=== PATIENT | male | born 1965 | race Caucasian/White ===

== ENCOUNTER 2020-02-03 11:21 | Emergency (ER) | payer MEDICARE, MEDICAID, SELFPAY ==
[2020-02-03 11:48] VITALS: BP 130/78; PULSE 81; RESP 16; TEMP 36.8; BMI 45.8
--- NOTE | 2020-02-03 13:59 | XRR_ITS ---
PROCEDURE INFORMATION: Exam: XR Chest, 1 View Exam date and time: 02/03/2020 2:00 PM Age: 55 years old Clinical indication: Chest pain; Type not specified TECHNIQUE: Imaging protocol: XR of the chest Views: 1 view. COMPARISON: No relevant prior studies available. FINDINGS: Lungs: Unremarkable. No consolidation. Pleural space: Unremarkable. No pleural effusion. No pneumothorax. Heart/Mediastinum: Unremarkable. No cardiomegaly. Bones/joints: Unremarkable. XR/XR chest 1V portable [id number] IMPRESSION: No acute findings.
[2020-02-03 14:48] LABS: Basophils % 0.2 %; Eosinophils # 0.1 10^3/uL (0.0-0.8); Eosinophils % 1.1 %; Hematocrit 46.6 % (42.0-52.0); Hemoglobin 14.7 g/dL (11.7-16.6); Lymphocytes # 1.9 10^3/uL (0.8-4.8); Lymphocytes % 21.5 %; Mean Corpuscular HGB Conc 31.5 g/dL (30.0-36.0); Mean Corpuscular Hemoglobin 32.2 pg (28.0-34.0); Mean Platelet Volume 10.8 fL (7.4-10.4); Monocytes # 0.5 10^3/uL (0.2-0.9); Neutrophils # 6.4 10^3/uL (1.8-7.7); Neutrophils % 71.9 %; Nucleated Red Blood Cells % 0 %; Platelet Count 237 10^3/cmm (130-400); Red Blood Count 4.57 10^6/uL (4.1-5.3); Red Cell Distribution Width 13.1 % (12.1-15.1); White Blood Count 8.9 10^3/uL (4.0-10.0)
[2020-02-03 15:34] LABS: Alanine Aminotransferase 22 U/L (0-41); Albumin Level 4.1 g/dL (3.5-5.2); Alkaline Phosphatase 78 IU/L (40-130); Anion Gap 14.1 (5-19); Aspartate Amino Transferase 17 U/L (0-40); Blood Urea Nitrogen 7 mg/dL (6-20); Calcium 9.2 mg/dL (8.5-10.5); Carbon Dioxide 28 mmol/L (22-29); Chloride 101 mmol/L (98-107); Globulin 3.3 g/dL (1.3-4.6); Glomerular Filtration Rate 87.6 mL/min (90-130); Glucose 93 mg/dL (65-115); Osmolality Calculated 284 mOsm/kg (285-295); Potassium 4.1 mmol/L (3.5-5.1); Sodium 139 mmol/L (136-145); Total Bilirubin 0.3 mg/dL (0.15-1.2); Total Protein 7.4 g/dL (6.6-8.7)
[2020-02-03 15:35] LABS: Troponin(5th) Baseline 6 ng/L (0-15)
--- NOTE | 2020-02-03 15:59 | ECG_ITS ---
[facility] ED Test Date: 2020-02-03 Pat Name: Jaxson Beckham Department: Room: Gender: Male Radiologist Physician: : 1965 Requested By: Ruth Riggins Order Number: [id number] Sp MD: Dang Alatorre M.D. Measurements Intervals [place] Rate: 70 P: 66 AK: 158 QRS: 30 QRSD: 100 T: 70 QT: 414 QTc: 447 Interpretive Statements SINUS RHYTHM LOW QRS VOLTAGE IN PRECORDIAL LEADS [QRS DEFLECTION < 1.0 mV IN CHEST LEADS] No previous ECG available for comparison Electronically Signed On 02-03-2020 20:54:17 CDT by Dang Alatorre M.D. [id number]
--- NOTE | 2020-02-03 16:50 | W.ED.WEAKNES ---
HPI - Weakness General: Chief complaint: Weakness Stated complaint: lightheaded/sent from [facility] Time Seen by Provider: 02/03/20 15:45 Source: patient and family Mode of arrival: ambulatory Limitations: no limitations History of Present Illness: HPI Narrative: Jaxson is a very nice 55-year-old male who comes in complaining of weakness, fatigue and arm and leg tingling as well as tingling to the back of his head. All of the symptoms have resolved at this time and are intermittent in nature. His weakness is ongoing but the patient states that he was sent here by his doctor to be evaluated. The patient states all of the symptoms have been going on for at least 4 months. They are intermittent and not disabling but becoming more frequent and he felt as though he should get checked out. Associated symptoms: Denies chest pain, chills, confusion, melena, diaphoresis, dysuria, easy bruising, fever(s), headache(s), nausea, syncope or vomiting Review of Systems Const: Reports: fatigue and malaise; Denies: fever(s), chills, body aches or diaphoresis Eyes: Denies: change in vision, blurry vision, blind spots, photophobia, eye discharge or eye redness ENMT: Denies: throat pain, odynophagia, hoarseness, swelling of lips/tongue, oral sores, ear or mastoid pain, ear discharge, change in hearing or nasal discharge Card: Denies: chest pain, palpitations, irregular heart rhythm, edema, lightheadedness, syncope, pre-syncope, dyspnea on exertion or orthopnea Resp: Denies: dyspnea, productive cough, non-productive cough, wheezing, hemoptysis or chest congestion GI: Denies: abdominal pain, nausea, vomiting, hematemesis, coffee ground emesis, heartburn, diarrhea, constipation, GI cramping, hematochezia or melena : Denies: flank pain, dysuria, urinary frequency, urinary urgency or hematuria Musc: Denies: neck pain, back pain, extremity pain, extremity swelling, joint pain, joint swelling, joint redness, joint warmth or joint stiffness Skin/Breast: Denies: rash, pruritus, erythema, skin tenderness or jaundice Neuro: Denies: headache(s), numbness in extremities, weakness in extremities, sensory changes, lack of coordination, difficulty walking, dizziness, vertigo, confusion, Slurred speech present or seizure-like activity Alvino/Lymph: Denies: easy bruising, easy bleeding, petechiae, purpura or enlarged lymph nodes All/Imm: Denies: urticaria, throat swelling, tongue swelling, facial swelling or acute wheezing PFSH ED PFSH: Medical History Cervical paraspinal muscle spasm PATI (generalized anxiety disorder) GERD (gastroesophageal reflux disease) Major depression Mixed hyperlipidemia Near syncope Surgical History No pertinent past surgical history Family History Father CAD (coronary artery disease) Brother CAD (coronary artery disease) Social History Smoking and tobacco status: current every day smoker cigarettes Packs smoked per day: 1 Quit status (tobacco): not considering quitting Second hand smoke exposure: No Alcohol intake: never Desire information about alcohol rehabilitation?: No Desire information about substance/drug rehabilitation?: No History of recent travel: No Current gender identity: Male Physical Exam Const: COMMON NORMALS: no acute distress, patient oriented x3, no limitations, healthy appearing and well nourished GENERAL APPEARANCE: cooperative, well kempt and well developed HENMT: COMMON NORMALS: normocephalic, atraumatic, external ears normal, EAC's normal and Normal external nose present HEAD & SCALP: normal to inspection, normocephalic and atraumatic FACE & SINUS: normal facial exam and face symmetric NOSE: Normal external nose present and Normal nares present EXTERNAL EAR: Yes external ears normal EXTERNAL AUDITORY CANAL: EAC's normal MOUTH: Normal oral and palatal mucosa present, lip normal and tongue normal Eye: COMMON NORMALS: Equal, round and reactive pupils present and conjunctivae normal GENERAL EYE: appearance normal, both eyes and all related structures ALIGNMENT: Yes alignment normal PERIORBITAL: periorbital findings normal EYELID: eyelids normal CONJUNCTIVA: Yes conjunctivae normal SCLERA: sclerae normal PUPIL: Yes Equal, round and reactive pupils present Neck/C-Spine: COMMON NORMALS: full ROM, no lymphadenopathy, supple, no meningeal signs and no JVD GENERAL: Yes normal visual inspection and Yes trachea midline Chest: COMMONS NORMALS: normal inspection of the chest and normal palpation of entire chest wall Resp: COMMON NORMALS: normal respiratory effort, No retractions and No use of accessory muscles EFFORT & INSPECTION: Yes able to speak in complete sentences and Yes symmetric chest movement AUSCULTATION: no crackles, no rales, no rhonchi and no wheezes Cardio: COMMON NORMALS: no JVD, regular rate, regular rhythm, S1 normal heart sound present and S2 normal heart sound present RATE: regular rate RHYTHM: regular rhythm HEART SOUNDS: S1 normal heart sound present, S2 normal heart sound present, no click, no gallops, no murmurs, no rubs and abnormal split S2 GI: COMMON NORMALS: Soft to palpation and No hepatosplenomegaly present PALPATION: Yes Soft to palpation, No Tenderness to palpation present (GI), No Guarding due to palpation present (GI), No Rigid due to palpation, Yes No hepatosplenomegaly present, No Hernia present, No Palpable mass present and No Pulsatile mass present : COMMON NORMALS: Yes no CVA tenderness BLADDER/KIDNEY EXAM: Yes no CVA tenderness Back/Pelvis: COMMON NORMALS: no CVA tenderness, thoracic and lumbar spine normal to inspection, no thoracic nor lumbar tenderness and thoraco-lumbar ROM normal Extremity: COMMON NORMALS: normal to inspection, full ROM, capillary refill normal, no joint enlargement, no clubbing, cyanosis or edema and no calf tenderness Neuro: COMMON NORMALS: patient oriented x3, CN's II-XII intact bilaterally, moves all extremities, no focal motor deficits and no sensory deficits noted MENINGEAL SIGNS: Yes no meningeal signs SPEECH: speech normal Psych: COMMON NORMALS: mental status grossly normal, Normal thought process present, cooperative, normal affect, speech normal and activity/motor behavior normal APPEARANCE: Yes well kempt SPEECH: Yes normal speech THOUGHT PROCESS: Normal thought process present Skin: COMMON NORMALS: no rashes or lesions noted, turgor normal, no jaundice, no petechiae and no mottling GENERAL SKIN EXAM: no rashes or lesions noted and turgor normal Course Vital Signs: Vital signs: Vital Signs Temperature 98.2 F 02/03/20 11:48 Pulse Rate 78 02/03/20 19:01 Respiratory Rate 17 02/03/20 19:01 Blood Pressure 149/71 02/03/20 19:01 Pulse Oximetry 96 02/03/20 19:01 MDM - Weakness MDM Narrative: Medical decision making narrative: After thorough investigation I cannot determine a cause for the patient's intermittent paresthesias as well as chronic fatigue. He admits that the symptoms are not present here currently other than just feeling tired. I see no acute life-threatening infectious, metabolic, electrolyte or cardiac abnormality. The patient would like a referral to a new primary care physician so I will have case management try to set him up with a new primary care physician. Patient agrees to return here should his symptoms change or worsen but currently he is feeling better and would like to be discharged. Lab Data: Attestation: I reviewed the patient's lab results. Labs: Lab Results 02/03/20 02/03/20 02/03/20 Range/Units 14:25 14:25 14:25 WBC 8.9 (4.0-10.0) 10^3/ uL RBC 4.57 (4.1-5.3) 10^6/u L Hgb 14.7 (11.7-16.6) g/dL Hct 46.6 (42.0-52.0) % MCV 102.0 H (80-94) fL MCH 32.2 (28.0-34.0) pg MCHC 31.5 (30.0-36.0) g/dL RDW 13.1 (12.1-15.1) % Plt Count 237 (130-400) 10^3/c mm MPV 10.8 H (7.4-10.4) fL Neut % (Auto) 71.9 % Lymph % (Auto) 21.5 % [place] % (Auto) 5.0 % Eos % (Auto) 1.1 % Baso % (Auto) 0.2 % Neut # (Auto) 6.4 (1.8-7.7) 10^3/u L Lymph # (Auto) 1.9 (0.8-4.8) 10^3/u L [place] # (Auto) 0.5 (0.2-0.9) 10^3/u L Eos # (Auto) 0.1 (0.0-0.8) 10^3/u L Baso # (Auto) 0.0 (0.0-0.1) 10^3/u L Nucleated RBC % (a uto) 0 % Nucleated RBCs # 0.0 /100WBC Sodium 139 (136-145) mmol/L Potassium 4.1 (3.5-5.1) mmol/L Chloride 101 (98-107) mmol/L Carbon Dioxide 28 (22-29) mmol/L Anion Gap 14.1 (5-19) BUN 7 (6-20) mg/dL Creatinine 0.9 (0.7-1.2) mg/dL GFR Calculation 87.6 L (90-130) mL/min Glucose 93 (65-115) mg/dL Calculated Osmolal ity 284 L (285-295) mOsm/k g Calcium 9.2 (8.5-10.5) mg/dL Total Bilirubin 0.3 (0.15-1.2) mg/dL AST 17 (0-40) U/L ALT 22 (0-41) U/L Alkaline Phosphata se 78 (40-130) IU/L Troponin T Baselin e 6 (0-15) ng/L Troponin T 120 Min [place] (0-15) ng/L Delta Troponin T (0-10) ABS# Total Protein 7.4 (6.6-8.7) g/dL Albumin 4.1 (3.5-5.2) g/dL Globulin 3.3 (1.3-4.6) g/dL TSH (0.27-4.20) uIU/ mL Urine Color (Yellow) Urine Appearance (CLEAR) Urine pH (5-7) Ur Specific Gravit y (1.005-1.030) Urine Protein (Negative) Urine Glucose (UA) (Normal) Urine Ketones (Negative) Urine Blood (Negative) Urine Nitrate (Negative) Urine Bilirubin (NEGATIVE) Urine Urobilinogen (Negative) mg/dL Ur Leukocyte Olga ase (Negative) 02/03/20 02/03/20 02/03/20 Range/Units 16:31 16:31 17:00 WBC (4.0-10.0) 10^3/ uL RBC (4.1-5.3) 10^6/u L Hgb (11.7-16.6) g/dL Hct (42.0-52.0) % MCV (80-94) fL MCH (28.0-34.0) pg MCHC (30.0-36.0) g/dL RDW (12.1-15.1) % Plt Count (130-400) 10^3/c mm MPV (7.4-10.4) fL Neut % (Auto) % Lymph % (Auto) % [place] % (Auto) % Eos % (Auto) % Baso % (Auto) % Neut # (Auto) (1.8-7.7) 10^3/u L Lymph # (Auto) (0.8-4.8) 10^3/u L [place] # (Auto) (0.2-0.9) 10^3/u L Eos # (Auto) (0.0-0.8) 10^3/u L Baso # (Auto) (0.0-0.1) 10^3/u L Nucleated RBC % (a uto) % Nucleated RBCs # /100WBC Sodium (136-145) mmol/L Potassium (3.5-5.1) mmol/L Chloride (98-107) mmol/L Carbon Dioxide (22-29) mmol/L Anion Gap (5-19) BUN (6-20) mg/dL Creatinine (0.7-1.2) mg/dL GFR Calculation (90-130) mL/min Glucose (65-115) mg/dL Calculated Osmolal ity (285-295) mOsm/k g Calcium (8.5-10.5) mg/dL Total Bilirubin (0.15-1.2) mg/dL AST (0-40) U/L ALT (0-41) U/L Alkaline Phosphata se (40-130) IU/L Troponin T Baselin e (0-15) ng/L Troponin T 120 Min [place] 6.28 (0-15) ng/L Delta Troponin T 0.28 (0-10) ABS# Total Protein (6.6-8.7) g/dL Albumin (3.5-5.2) g/dL Globulin (1.3-4.6) g/dL TSH 0.67 (0.27-4.20) uIU/ mL Urine Color Yellow (Yellow) Urine Appearance Clear (CLEAR) Urine pH 6 (5-7) Ur Specific Gravit y 1.020 (1.005-1.030) Urine Protein Neg (Negative) Urine Glucose (UA) Norm (Normal) Urine Ketones Negative (Negative) Urine Blood Neg (Negative) Urine Nitrate Negative (Negative) Urine Bilirubin Neg (NEGATIVE) Urine Urobilinogen 1 H (Negative) mg/dL Ur Leukocyte Olga ase Negative (Negative) Imaging Data^: CT Head: Radiologist's impression: [address] [address] [address] Scan Report Signed Patient: Jaxson Beckham Unit #: [id number] : 1965 Age/Sex: 55 / M ADM Date: 02/03/20 Loc: ER Room/Bed: Attending Dr: Ordering Provider/Ordering MD: Charline Anderson DO Date of Service: 02/03/20 Procedure(s): CT head wo con* [id number] Accession Number(s): [id number] Report Number: [id number] PROCEDURE INFORMATION: Exam: CT Head Without Contrast Exam date and time: 02/03/2020 5:39 PM Age: 55 years old Clinical indication: Other: Parasthesias; Additional info: Paresthesias TECHNIQUE: Imaging protocol: Computed tomography of the head without contrast. Radiation optimization: All CT scans at this facility use at least one of these dose optimization techniques: automated exposure control; mA and/or kV adjustment per patient size (includes targeted exams where dose is matched to clinical indication); or iterative reconstruction. COMPARISON: No relevant prior studies available. RADIATION DOSE METRICS: Total DLP (mGy-cm): 1026.29 FINDINGS: Brain: Normal. No hemorrhage. Unremarkable white matter. No mass effect. Ventricles: Normal. No ventriculomegaly. Bones/joints: Unremarkable. No acute fracture. Sinuses: Visualized sinuses are unremarkable. No fluid levels. Mastoid air cells: Visualized mastoid air cells are well aerated. Soft tissues: Unremarkable. CT/CT head wo con* [id number] IMPRESSION: No acute intracranial abnormality. Radiation Dose CTDIVOL = (mGy): DLP = 1026.29 (mGy-cm) Dictated By: Brandin Ta MD Signed By: Brandin Ta MD Signed Date/Time: 02/03/201756 DD/ 55 CT Cervical Spine: Radiologist's impression: [address] [place] [address] CT Scan Report Signed Patient: Jaxson Beckham Unit #: [id number] : 1965 Age/Sex: 55 / M ADM Date: 02/03/20 Loc: ER Room/Bed: Attending Dr: Ordering Provider/Ordering MD: Charline Anderson DO Date of Service: 02/03/20 Procedure(s): CT cervical spin wo con* [id number] Accession Number(s): [id number] Report Number: [id number] PROCEDURE INFORMATION: Exam: CT Cervical Spine Without Contrast Exam date and time: 02/03/2020 5:44 PM Age: 55 years old Clinical indication: Other: Parasthesias; Patient HX: Pain TECHNIQUE: Imaging protocol: Computed tomography images of the cervical spine without contrast. Radiation optimization: All CT scans at this facility use at least one of these dose optimization techniques: automated exposure control; mA and/or kV adjustment per patient size (includes targeted exams where dose is matched to clinical indication); or iterative reconstruction. COMPARISON: No relevant prior studies available. RADIATION DOSE METRICS: Total DLP (mGy-cm): 1026.29 FINDINGS: Vertebrae: Levoscoliosis. Moderate to severe multilevel spine degenerative changes including degenerative disc disease, spondylosis and facet degenerative changes. C2-C3: Mild posterior central disc protrusion without stenosis. C3-C4: Mild degenerative disc disease and spondylosis. Moderate bilateral foraminal stenosis. C4-C5: Moderate to severe right foraminal stenosis. C5-C6: Moderate degenerative disc disease and spondylosis. Bpvw-en-kiqkwzkv bilateral foraminal stenosis. Qygz-bj-qkezepst central spinal stenosis C6-C7: Mild to moderate degenerative disc disease and spondylosis. Mild posterior disc bulge. Qoya-wc-zvjsqvfx central spinal stenosis with AP diameter of the spinal canal 7 mm. Okob-jp-axyczuow bilateral foraminal stenosis. C7-T1: Mild degenerative disc disease and spondylosis. Soft tissues: Unremarkable. Lungs: Lung apices are normal. CT/CT cervical spin wo con* [id number] IMPRESSION: 1. Levoscoliosis. 2. Multilevel degenerative changes including degenerative disc disease, spondylosis and facet degenerative changes with associated multilevel central spinal stenosis and/or foraminal stenosis as discussed above. Radiation Dose CTDIVOL = (mGy): DLP = 1026.29 (mGy-cm) Dictated By: Brandin Ta MD Signed By: Brandin Ta MD Signed Date/Time: 02/03/20 1802 DD/ 1800 EKG Data^: EKG 1: Attestation: I personally reviewed and interpreted this EKG as follows: EKG interpretation date: 02/03/20 EKG interpretation time: 15:57 Interpretation: Normal sinus rhythm at 70 beats a minute, no acute ST or T wave changes. Discharge Plan Discharge Patient Disposition: Home, Self-Care Clinical Impression: Malaise and fatigue Condition: Stable Prescriptions: No Action citalopram 20 mg tablet 20 mg PO DAILY 90 Days Qty: 90 RF: 1 Prilosec OTC 20 mg tablet,delayed release (DR/EC) 20 mg PO DAILY 90 Days Qty: 90 RF: 1 ibuprofen 800 mg tablet 800 mg PO TID PRN (Reason: pain) 30 Days Qty: 90 RF: 2 Discharge Orders: Discharge Order (Routine); Ordered 02/03/20 Ordered By: Charline Anderson Referrals: Maria Isabel Pyle MD [Primary Care Provider] - 1-3 days Discharge Diet: Advance as tolerated Discharge Activity: Increase activity as tolerated Patient Instructions: Weakness (ED), Fatigue (ED) Activity Restrictions/Additional Instructions: Please return to the ER immediately for any of the signs or symptoms listed on your discharge instruction sheets, worsening/changing of your symptoms, you are not getting better as quickly as expected, or for ANY other cause or concerns. Someone from our case management department will get in contact with you to set you up with a primary care physician for as soon as possible. Discharge Date/Time: 02/03/20 19:03 Coding Level of Care Code ED Personnel Associate for Chg Fwd Exam Comprehensive
[2020-02-03 17:00] LABS: Troponin 5 2HR 6.28 ng/L (0-15); Troponin 5 2HR Delta 0.28 ABS# (0-10)
[2020-02-03 17:24] LABS: Add Urine Microscopic? NO
--- NOTE | 2020-02-03 17:24 | CTR_ITS ---
PROCEDURE INFORMATION: Exam: CT Cervical Spine Without Contrast Exam date and time: 02/03/2020 5:44 PM Age: 55 years old Clinical indication: Other: Parasthesias; Patient HX: Pain TECHNIQUE: Imaging protocol: Computed tomography images of the cervical spine without contrast. Radiation optimization: All CT scans at this facility use at least one of these dose optimization techniques: automated exposure control; mA and/or kV adjustment per patient size (includes targeted exams where dose is matched to clinical indication); or iterative reconstruction. COMPARISON: No relevant prior studies available. RADIATION DOSE METRICS: Total DLP (mGy-cm): 1026.29 FINDINGS: Vertebrae: Levoscoliosis. Moderate to severe multilevel spine degenerative changes including degenerative disc disease, spondylosis and facet degenerative changes. C2-C3: Mild posterior central disc protrusion without stenosis. C3-C4: Mild degenerative disc disease and spondylosis. Moderate bilateral foraminal stenosis. C4-C5: Moderate to severe right foraminal stenosis. C5-C6: Moderate degenerative disc disease and spondylosis. Pyjk-vm-ykfiakgb bilateral foraminal stenosis. Yobn-zd-mdqhzcnx central spinal stenosis C6-C7: Mild to moderate degenerative disc disease and spondylosis. Mild posterior disc bulge. Rdov-vq-iwdsqokn central spinal stenosis with AP diameter of the spinal canal 7 mm. Jolm-mt-xopjdily bilateral foraminal stenosis. C7-T1: Mild degenerative disc disease and spondylosis. Soft tissues: Unremarkable. Lungs: Lung apices are normal. CT/CT cervical spin wo con* [id number] IMPRESSION: 1. Levoscoliosis. 2. Multilevel degenerative changes including degenerative disc disease, spondylosis and facet degenerative changes with associated multilevel central spinal stenosis and/or foraminal stenosis as discussed above. Radiation Dose CTDIVOL = (mGy): DLP = 1026.29 (mGy-cm)
--- NOTE | 2020-02-03 17:24 | CTR_ITS ---
PROCEDURE INFORMATION: Exam: CT Head Without Contrast Exam date and time: 02/03/2020 5:39 PM Age: 55 years old Clinical indication: Other: Parasthesias; Additional info: Paresthesias TECHNIQUE: Imaging protocol: Computed tomography of the head without contrast. Radiation optimization: All CT scans at this facility use at least one of these dose optimization techniques: automated exposure control; mA and/or kV adjustment per patient size (includes targeted exams where dose is matched to clinical indication); or iterative reconstruction. COMPARISON: No relevant prior studies available. RADIATION DOSE METRICS: Total DLP (mGy-cm): 1026.29 FINDINGS: Brain: Normal. No hemorrhage. Unremarkable white matter. No mass effect. Ventricles: Normal. No ventriculomegaly. Bones/joints: Unremarkable. No acute fracture. Sinuses: Visualized sinuses are unremarkable. No fluid levels. Mastoid air cells: Visualized mastoid air cells are well aerated. Soft tissues: Unremarkable. CT/CT head wo con* [id number] IMPRESSION: No acute intracranial abnormality. Radiation Dose CTDIVOL = (mGy): DLP = 1026.29 (mGy-cm)
[2020-02-03 17:26] LABS: Urine Color Yellow (Yellow)
[2020-02-03 17:27] LABS: Bilirubin Urine Neg (NEGATIVE); Blood Urine Neg (Negative); Glucose Urine UA Norm (Normal); Ketones Urine Negative (Negative); Leukocyte Esterase Urine Negative (Negative); Nitrate Urine Negative (Negative); Protein Urine Neg (Negative); Urine Appearance Clear (CLEAR); Urobilinogen Urine 1 mg/dL (Negative); pH Urine 6 (5-7)
[2020-02-03 18:10] LABS: Thyroid Stimulating Hormone 0.67 uIU/mL (0.27-4.20)
[2020-02-03 19:01] VITALS: BP 149/71; PULSE 78; RESP 17; O2SAT 96
== END 2020-02-03 19:03 | disposition home or self-care (01) ==
PROVIDERS: Physician Assistant; Emergency Provider Emergency Medicine; Family Provider Family Medicine; PCP Family Medicine
DX: R53.81 Other malaise (principal); R53.83 Other fatigue; E78.2 Mixed hyperlipidemia; F17.210 Nicotine dependence, cigarettes, uncomplicated
CPT/HCPCS: 12345; 36415; 70450; 71045; 72125; 80053; 81003; 84443; 84484; 85025; 93005; 99282; 99283

== ENCOUNTER → 2020-06-13 14:09 | Outpatient (BNVA) | payer MEDICARE, MEDICAID, SELFPAY | PROVIDERS: Family Provider Family Medicine; PCP Family Medicine; Visit Provider Family Medicine | DX: E78.2 Mixed hyperlipidemia (principal); I10 Essential (primary) hypertension; K21.9 Gastro-esophageal reflux disease without esophagitis; F41.1 Generalized anxiety disorder | CPT/HCPCS: 80053; 80061 ==

== ENCOUNTER → 2020-08-24 14:45 | Outpatient (BNVA) | payer MEDICARE, MEDICAID, SELFPAY | PROVIDERS: Family Provider Family Medicine; PCP Family Medicine; Visit Provider Emergency Medicine | DX: R07.81 Pleurodynia (principal) | CPT/HCPCS: 71046 ==

== ENCOUNTER 2020-08-31 16:16 | Outpatient (CLI) | payer MEDICARE, MEDICAID, SELFPAY ==
--- NOTE | 2020-08-31 16:49 | XR_ITS ---
WS: [id number] Exam: XR ribs RT 2V* [id number] Date/Time of Exam: 08/31/2020 4:49 PM Reason For Exam: R07.81 - Pleurodynia No acute rib fracture. The right lung is fully expanded and clear. No pleural or pulmonary reactive c hanges. XR/XR ribs RT 2V* [id number] IMPRESSION: 1. No acute right rib fracture or pneumothorax.
== END 2020-08-31 16:17 | disposition home or self-care (01) ==
PROVIDERS: PCP Family Medicine; Referring Provider Emergency Medicine; Visit Provider Emergency Medicine
DX: R07.81 Pleurodynia (principal)
CPT/HCPCS: 71100

== ENCOUNTER → 2021-03-27 13:32 | Outpatient (BNVA) | payer MEDICARE, MEDICAID, SELFPAY | PROVIDERS: PCP Family Medicine; Visit Provider Family Medicine | DX: F41.1 Generalized anxiety disorder (principal); I10 Essential (primary) hypertension; K21.9 Gastro-esophageal reflux disease without esophagitis; Z13.1 Encounter for screening for diabetes mellitus; E78.2 Mixed hyperlipidemia; M62.831 Muscle spasm of calf; F33.1 Major depressive disorder, recurrent, moderate; M62.838 Other muscle spasm; Z68.38 Body mass index [BMI] 38.0-38.9, adult | CPT/HCPCS: 80053; 80061; 83735; 85025 ==

== ENCOUNTER → 2022-04-23 14:04 | Outpatient (BNVA) | payer MEDICARE, MEDICAID, SELFPAY | PROVIDERS: PCP Family Medicine; Visit Provider Family Medicine | DX: K21.9 Gastro-esophageal reflux disease without esophagitis (principal); F41.1 Generalized anxiety disorder; M79.641 Pain in right hand; I10 Essential (primary) hypertension; E78.2 Mixed hyperlipidemia; R73.9 Hyperglycemia, unspecified; Z13.1 Encounter for screening for diabetes mellitus; I73.9 Peripheral vascular disease, unspecified; F33.1 Major depressive disorder, recurrent, moderate; M62.838 Other muscle spasm; M62.831 Muscle spasm of calf | CPT/HCPCS: 80053; 80061; 83036 ==

== ENCOUNTER → 2022-07-04 09:59 | Outpatient (BNVA) | payer MEDICARE, MEDICAID, SELFPAY | PROVIDERS: PCP Family Medicine; Visit Provider Internal Medicine Cardiovascular Disease | DX: M79.606 Pain in leg, unspecified (principal); I10 Essential (primary) hypertension; E78.2 Mixed hyperlipidemia; F41.1 Generalized anxiety disorder; K21.9 Gastro-esophageal reflux disease without esophagitis; M62.838 Other muscle spasm; F17.210 Nicotine dependence, cigarettes, uncomplicated | CPT/HCPCS: 93005; 99204 ==

== ENCOUNTER 2022-08-15 08:56 | Outpatient (CLI) | payer MEDICARE, MEDICAID, SELFPAY ==
--- NOTE | 2022-08-15 09:30 | USCV_ITS ---
Jaxson Beckham Age: 57 Gender: M : 1965 Exam Date: 08/15/2022 10:09 Ordering Phys: Dang Alatorre MD ([email or web address]) Technologist: [place]am [place] [facility] [place]: Exersize claudication RIGHT LEFT Brachial 158.00 mmHg Brachial 148.00 mmHg Pressure (mmHg) Waveform Pressure (mmHg) Waveform 146.00 HAY STACKER 110.00 166.00 DPA 115.00 1.05 Ankle/Brachial Index 0.73 0.85 Post-Exercise Ankle Brachial Index 0.65 108.00 Pre-Exercise Toe Pressure 66.00 0.68 Pre-Exercise Toe/Brachial Index 0.42 FINDINGS Resting CLAUDIO 1.05 on the right and 0.73 on the left Post exercise CLAUDIO of 0.85 on the right and 0.65 on the left Resting TBI of 0.68 on the right and 0.42 on the left CONCLUSIONS 1. Features of moderate peripheral artery disease on the left side 2. Features of mild peripheral artery disease on the right side Dr Debbie Armenta MD [facility] (Electronically Signed) Final Date: 15 August 2022 20:15 S
== END 2022-08-15 08:57 | disposition home or self-care (01) ==
PROVIDERS: PCP Family Medicine; Visit Provider Internal Medicine Cardiovascular Disease
DX: I73.9 Peripheral vascular disease, unspecified (principal)
CPT/HCPCS: 93922

== ENCOUNTER → 2023-02-18 13:56 | Outpatient (BNVA) | payer MEDICARE, MEDICAID, SELFPAY | PROVIDERS: PCP Family Medicine; Visit Provider Internal Medicine Cardiovascular Disease | DX: I10 Essential (primary) hypertension (principal); E78.2 Mixed hyperlipidemia; F41.1 Generalized anxiety disorder; K21.9 Gastro-esophageal reflux disease without esophagitis; M62.838 Other muscle spasm; F17.210 Nicotine dependence, cigarettes, uncomplicated; Z79.82 Long term (current) use of aspirin | CPT/HCPCS: 99214 ==

== ENCOUNTER → 2023-07-03 08:50 | Outpatient (BNVA) | payer MEDICARE, MEDICAID, SELFPAY | PROVIDERS: PCP Family Medicine; Visit Provider Family Medicine | DX: K21.9 Gastro-esophageal reflux disease without esophagitis (principal); M79.641 Pain in right hand; F41.1 Generalized anxiety disorder; I10 Essential (primary) hypertension; E78.2 Mixed hyperlipidemia; Z51.81 Encounter for therapeutic drug level monitoring | CPT/HCPCS: 80053; 80061; 85025 ==

== ENCOUNTER → 2023-09-18 13:09 | Outpatient (BNVA) | payer MEDICARE, MEDICAID, SELFPAY | PROVIDERS: PCP Family Medicine; Visit Provider Internal Medicine Cardiovascular Disease | DX: E78.2 Mixed hyperlipidemia (principal); I10 Essential (primary) hypertension; F33.1 Major depressive disorder, recurrent, moderate; F41.1 Generalized anxiety disorder; K21.9 Gastro-esophageal reflux disease without esophagitis; M54.9 Dorsalgia, unspecified; G89.29 Other chronic pain; M79.641 Pain in right hand; M79.606 Pain in leg, unspecified; M62.838 Other muscle spasm; Z72.0 Tobacco use; E66.9 Obesity, unspecified; Z68.41 Body mass index [BMI] 40.0-44.9, adult | CPT/HCPCS: 99214 ==

== ENCOUNTER 2023-12-25 11:47 | Emergency (ER) | payer MEDICARE, MEDICAID, SELFPAY ==
[2023-12-25 11:50] VITALS: BP 119/74; PULSE 85; RESP 16; TEMP 36.5; O2SAT 91; BMI 40.7
[2023-12-25 12:05] VITALS: BP 130/73; PULSE 82; O2SAT 88
--- NOTE | 2023-12-25 12:32 | XR_ITS ---
WS: [id number] Portable AP upright chest, 12/25/2023 Clinical Data: chest pain Comparison: Two-view chest, 08/24/2020 Findings: No nodules, masses or effusions are seen. The heart is normal. The pulmonary vascularity is not increased. No pneumonia or pneumothorax is seen. There are monitor leads on the chest wall XR/XR chest 1V portable [id number] Impression: Negative chest.
--- NOTE | 2023-12-25 12:33 | ECG_ITS ---
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 Measurements Intervals Trail Rate: 84 P: 12 WA: 156 QRS: -11 QRSD: 102 T: 67 QT: 383 QTc: 454 Interpretive Statements SINUS RHYTHM LOW QRS VOLTAGE IN PRECORDIAL LEADS [QRS DEFLECTION < 1.0 mV IN CHEST LEADS] NONSPECIFIC T-WAVE ABNORMALITY Compared to ECG 02/03/2020 15:57:24 T-wave abnormality now present Electronically Signed On 12-25-2023 17:09:23 CDT by Nasim Husain M.D. [id number]
[2023-12-25 12:44] LABS: Basophils % 0.4 %; Eosinophils # 0.2 10^3/uL (0.0-0.8); Eosinophils % 2.2 %; Hematocrit 45.3 % (37-53); Lymphocytes # 1.7 10^3/uL (0.8-4.8); Lymphocytes % 20.7 %; Mean Corpuscular HGB Conc 33.1 g/dL (30-55); Mean Corpuscular Hemoglobin 31.8 pg (27-33); Mean Platelet Volume 10.2 fL (7.4-10.4); Monocytes # 0.6 10^3/uL (0.2-0.9); Monocytes % 6.6 %; Neutrophils # 5.81 10^3/uL (1.8-7.7); Nucleated Red Blood Cells % 0 %; Platelet Count 235 10^3/cmm (157-399); Red Blood Count 4.72 10^6/uL (3.85-5.65); Red Cell Distribution Width 12.6 % (12.1-15.1)
[2023-12-25 12:55] LABS: Alanine Aminotransferase 19 U/L (0-41); Albumin Level 3.8 g/dL (3.5-5.2); Alkaline Phosphatase 90 U/L (40-130); Anion Gap 14.3 (5-19); Aspartate Amino Transferase 12 U/L (0-40); Blood Urea Nitrogen 15 mg/dL (6-20); Calcium 8.9 mg/dL (8.5-10.5); Carbon Dioxide 26 mmol/L (22-29); Chloride 106 mmol/L (98-107); Creatinine Clr Calc Pharmacy 123.6173; Globulin 3.2 g/dL (1.3-4.6); Glomerular Filtration Rate 99.3 mL/min (90-130); Glucose 103 mg/dL (65-115); Osmolality Calculated 295 mOsm/kg (285-295); Potassium 4.3 mmol/L (3.5-5.1); Sodium 142 mmol/L (136-145); Total Bilirubin 0.3 mg/dL (0.15-1.2)
[2023-12-25 12:56] LABS: Troponin(5th) Baseline 7 ng/L (0-15)
--- NOTE | 2023-12-25 13:26 | ED_ITS ---
HPI - Chest Pain 2 General: Chief Complaint: Chest Pain Stated Complaint: numb, cp Time Seen by Provider: 12/25/23 11:50 Source: patient Mode of arrival: ambulatory History of Present Illness: 58-year-old male presents to the emergen cy room with complaints of chest pain. She had this for the last 2 days interestingly he says when he is active the chest pain gets lasts when he gets anxious he gets worse when asked him if anything makes it better he says when my anxiety goes away. He does get some shortness of breath with it and some arm discomfort. They have also noticed some occasional slurring of his words, no other focal neurologic deficits. Patient has no known history of coronary disease he is a smoker he is not diabetic that he knows of. He has not previously had any cardiac testing. Does have a history hypertension hyperlipidemia MD complaint: chest pain Onset (ago): day(s) (2) Timing of current episode: episodic Prior episodes: Yes Onset: during rest Pain location: left chest Pain radiation: left arm and left shoulder Severity: moderate Quality: tightness and aching Relieving factors: other (Activity/anxiety) Exacerbating factors: nothing Associated symptoms: Deny abdominal pain, dyspnea, fever(s) or palpitations Review of Systems 2 Const: Denies: fever(s) or chills Card: Reports: chest pain; Denies: palpitations, irregular heart rhythm or edema Resp: Denies: dyspnea GI: Denies: abdominal pain : Denies: dysuria, urinary frequency or urinary urgency Musc: Denies: neck pain or back pain Skin/Breast: Denies: rash PFSH ED 2 PFSH: Medical History Obesity Tobacco abuse Hypertension Mixed hyperlipidemia Major depression Cervical paraspinal muscle spasm GERD (gastroesophageal reflux disease) PATI (generalized anxiety disorder) Surgical History H/O hand surgery S/P cholecystectomy No pertinent past surgical history Family History Father , NM CAD (coronary artery disease) Myocardial infarction Hypertension Brother CAD (coronary artery disease) Myocardial infarction X2 brothers NM Hypertension Social History (Reviewed 12/25/23 @ 13:26 by MATHIEU Vo Smoking and tobacco/nicotine status: current every day tobacco/nicotine user cigarettes Packs smoked per day: 1 Years cigarettes smoked: 40 [ Other cigarette details: 1-2 ppd] Second hand smoke exposure: No Alcohol intake: never Substance/Drug Use: never Current gender identity: Male Physical Exam 2 Const: GENERAL APPEARANCE: cooperative and comfortable O RIENTATION/CONSCIOUSNESS: Yes awake, Yes oriented to person, Yes oriented to place and Yes oriented to time HENMT: COMMON NORMALS: normocephalic, atraumatic and hearing grossly normal bilaterally HEAD & SCALP: normocephalic and atraumatic Resp: COMMON NORMALS: normal respiratory effort, No retractions, No use of accessory muscles and clear to auscultation bilaterally AUSCULTATION: clear to auscultation bilaterally Cardio: COMMON NORMALS: regular rate, regular rhythm and No murmurs present (Cardio) RATE: regular rate RHYTHM: regular rhythm GI: COMMON NORMALS: No hepatosplenomegaly present AUSCULTATION: Yes normoactive bowel sounds PALPATION: Yes Tenderness to palpation present (GI) (Mild epigastric), No Guarding due to palpation present (GI) and Yes No hepatosplenomegaly present Extremity: COMMON NORMALS: normal to inspection, capillary refill normal, no clubbing, cyanosis or edema, no calf tenderness and no pedal edema Neuro: SENSORIUM/ORIENTATION: Yes oriented to person, Yes oriented to place and Yes oriented to time OTHER: Neuroexam negative NIH is 0 Skin: COMMON NORMALS: no rashes or lesions noted GENERAL SKIN EXAM: no rashes or lesions noted Course 2 Vital Signs: Vital signs: Vital Signs Temperature 97.7 F 12/25/23 11:50 Pulse Rate 78 12/25/23 15:10 Respiratory Rate 16 12/25/23 11:50 Blood Pressure 138/91 12/25/23 13:32 Pulse Oximetry 92 12/25/23 16:05 Oxygen Delivery Me thod Room Air 12/25/23 15:10 MDM - Chest Pain Medical Decision Making Cardiac enzymes negative. On the monitor in the emergency room occasionally his sats were low as [place]ath on the oximeter was sometimes irregular we did do home O2 eval which was negative his sats actually improved when he ambulated. Will discharge the patient home set him up for an outpatient stress test start him on isosorbide mononitrate 30 mg daily baby aspirin daily. Avoid exertional activities Medical Records I reviewed the patient's medical records. Lab Data I reviewed the patient's lab results. 12/25/23 12:12 12/25/23 12:12 Radiology Impressions Chest X-Ray 12/25/23 12:32 Impression: Negative chest. Head CT 12/25/23 13:35 IMPRESSION: Negative head CT. Laboratory Results WBC 8.30 10^3/uL (3.29-11.43) 12/25/23 12:12 RBC 4.72 10^6/uL (3.85-5.65) 12/25/23 12:12 Hgb 15.00 g/dL (11.27-16.99) 12/25/23 12:12 Hct 45.3 % (37-53) 12/25/23 12:12 MCV 96.0 fl (82-101) 12/25/23 12:12 MCH 31.8 pg (27-33) 12/25/23 12:12 MCHC 33.1 g/dL (30-55) 12/25/23 12:12 RDW 12.6 % (12.1-15.1) 12/25/23 12:12 Plt Count 235 10^3/cmm (157-399) 12/25/23 12:12 MPV 10.2 fL (7.4-10.4) 12/25/23 12:12 Neut % (Auto) 70.0 % 12/25/23 12:12 Lymph % (Auto) 20.7 % 12/25/23 12:12 Meriwether % (Auto) 6.6 % 12/25/23 12:12 Eos % (Auto) 2.2 % 12/25/23 12:12 Baso % (Auto) 0.4 % 12/25/23 12:12 Neut # (Auto) 5.81 10^3/uL (1.8-7.7) 12/25/23 12:12 Lymph # (Auto) 1.7 10^3/uL (0.8-4.8) 12/25/23 12:12 Meriwether # (Auto) 0.6 10^3/uL (0.2-0.9) 12/25/23 12:12 Eos # (Auto) 0.2 10^3/uL (0.0-0.8) 12/25/23 12:12 Baso # (Auto) 0.0 10^3/uL (0.0-0.1) 12/25/23 12:12 Nucleated RBC % (auto) 0 % 12/25/23 12:12 Nucleated RBCs # 0.0 /100WBC 12/25/23 12:12 Sodium 142 mmol/L (136-145) 12/25/23 12:12 Potassium 4.3 mmol/L (3.5-5.1) 12/25/23 12:12 Chloride 106 mmol/L (98-107) 12/25/23 12:12 Carbon Dioxide 26 mmol/L (22-29) 12/25/23 12:12 Anion Gap 14.3 (5-19) 12/25/23 12:12 BUN 15 mg/dL (6-20) 12/25/23 12:12 Creatinine 0.8 mg/dL (0.7-1.2) 12/25/23 12:12 GFR Calculation 99.3 mL/min (90-130) 12/25/23 12:12 Glucose 103 mg/dL (65-115) 12/25/23 12:12 Calculated Osmolality 295 mOsm/kg (285-295) 12/25/23 12:12 Calcium 8.9 mg/dL (8.5-10.5) 12/25/23 12:12 Total Bilirubin 0.3 mg/dL (0.15-1.2) 12/25/23 12:12 AST 12 U/L (0-40) 12/25/23 12:12 ALT 19 U/L (0-41) 12/25/23 12:12 Alkaline Phosphatase 90 U/L (40-130) 12/25/23 12:12 Troponin T Baseline 7 ng/L (0-15) 12/25/23 12:12 Troponin T 120 Minute 6.00 ng/L (0-15) 12/25/23 14:18 Delta Troponin T -1.00 ABS# (0-10) L 12/25/23 14:18 Total Protein 7.0 g/dL (6.6-8.7) 12/25/23 12:12 Albumin 3.8 g/dL (3.5-5.2) 12/25/23 12:12 Globulin 3.2 g/dL (1.3-4.6) 12/25/23 12:12 All radiology interpretation(s) finalized by discharge Discharge Plan Discharge Patient Disposition: Home Clinical Impression: Atypical chest pain Condition: Stable Prescriptions: New isosorbide mononitrate 30 mg tablet extended release 24 hr 30 mg PO DAILY Qty: 30 0RF No Action citalopram 20 mg tablet 20 mg PO DAILY 90 Days Qty: 90 2RF ibuprofen 800 mg tablet 800 mg PO TID cilostazol 50 mg tablet 50 mg PO BID aspirin 81 mg tablet,delayed release (DR/EC) 81 mg PO DAILY omeprazole 20 mg capsule,delayed release(DR/EC) 20 mg PO DAILY Discharge Orders: Discharge ED (Routine); Ordered 12/25/23 Ordered By: Sarkis Gil Referrals: Maria Isabel Pyle MD [Primary Care Provider] - Discharge Diet: Usual diet Discharge Activity: Limit activity as instructed Patient Instructions: Opioid Safety, Pain Management Activity Restrictions/Additional Instructions: Thank you for choosing [facility] for your healthcare needs today. Please realize this is an emergency room and that we are providing you with a medical screening exam and this may not be complete and all inclusive of all the testing and or work up that you may need to determine your ailment or severity of your illness. It is very important that you follow up as instructed or that you return to the Emergency Department should you have concerns or if your condition changes or worsens in any way. You were seen today for complaints of chest pain and numbness. On exam there is no sign of stroke and a CT of your head was negative. Your EKG did not show any acute ST changes no signs of acute coronary disease at this time. Your cardiac enzymes were negative. Will discharge home recommend you continue to take a baby aspirin daily in addition add isosorbide mononitrate once daily. Will set you up for an outpatient stress test if you have worsening of your symptoms return to the emergency room. Coding Level of Care Code ED [employer] Supervisor for Cassy Godwin
[2023-12-25 13:32] VITALS: BP 138/91; PULSE 88; O2SAT 92
--- NOTE | 2023-12-25 13:35 | CT_ITS ---
WS: [id number] CT HEAD NONCONTRAST HISTORY: Dysarthria TECHNIQUE: Contiguous axial imaging performed through the brain in 2.5 mm imaging. Bone and soft tiss ue windows. Sagittal and coronal reformats reviewed. All CT scans at [facility] use at least one of these dose optimization techniques: automated exposure control; mA and/or kV adjustment per pa tient size (includes targeted exams where dose is matched to clinical indication); or iterative recon struction. DLP: 1062.78 mGy.cm COMPARISON: 02/03/2020 No acute intracranial hemorrhage, midline shift or mass effect. No atrophy or prior infarcts or herniation. Ventricles: Normal size with no hydrocephalus. Paranasal sinuses: As visualized are clear. Mastoid air cells: Well pneumatized. Calvarium and scalp: Skull is intact with no soft tissue edema or swelling. CT/CT head wo con* [id number] IMPRESSION: Negative head CT.
--- NOTE | 2023-12-25 14:46 | ECG_ITS ---
[facility] Test Date: 2023-12-25 Pat Name: Jaxson Beckham Department: Room: Gender: Male Program Planner: : 1965 Requested By: Sarkis Avina Order Number: [id number] Sp MD: Nasim Husain M.D. Measurements Intervals Edgar Rate: 84 P: 14 HI: 156 QRS: -7 QRSD: 103 T: 66 QT: 376 QTc: 445 Interpretive Statements SINUS RHYTHM LOW QRS VOLTAGE IN PRECORDIAL LEADS [QRS DEFLECTION < 1.0 mV IN CHEST LEADS] Compared to ECG 12/25/2023 11:53:26 T-wave abnormality no longer present Electronically Signed On 12-25-2023 17:11:40 CDT by Nasim Husain M.D. [id number]
[2023-12-25 15:10] VITALS: PULSE 78; O2SAT 89
[2023-12-25 16:05] VITALS: O2SAT 92; O2SAT 93
--- NOTE | 2023-12-25 16:34 | DCPLANNER ---
order faxed to scheduling for stress test
[2023-12-25 16:52] VITALS: BP 138/91; PULSE 78; RESP 16; TEMP 36.5; O2SAT 89
== END 2023-12-25 16:54 | disposition home or self-care (01) ==
PROVIDERS: Emergency Provider Family Medicine; PCP Family Medicine
DX: R07.89 Other chest pain (principal); Z79.82 Long term (current) use of aspirin; I10 Essential (primary) hypertension; E78.2 Mixed hyperlipidemia; F17.210 Nicotine dependence, cigarettes, uncomplicated
CPT/HCPCS: 36415; 70450; 71045; 80053; 84484; 85025; 93005; 99285

== ENCOUNTER → 2025-03-24 09:43 | Outpatient (BNVA) | payer MEDICARE, MEDICAID, SELFPAY | PROVIDERS: PCP Family Medicine; Visit Provider Family Medicine | DX: E66.9 Obesity, unspecified (principal); Z12.5 Encounter for screening for malignant neoplasm of prostate; I10 Essential (primary) hypertension; E78.2 Mixed hyperlipidemia; Z13.1 Encounter for screening for diabetes mellitus; R73.9 Hyperglycemia, unspecified | CPT/HCPCS: 80053; 80061; 83036; 85025; G0103 ==